=== PATIENT | female | born 1990 | race Caucasian/White ===

== ENCOUNTER 2018-01-09 00:49 | Outpatient (CLI) | payer OTHER, BC, MEDICAID, SELFPAY ==
--- NOTE | 2018-01-09 11:34 | DI.MRI_ITS ---
SYMPTOMS/DIAGNOSIS: SCIATICA RT, M54.31 MRI OF THE LUMBAR SPINE: Comparison is made with plain films dated . T 1, T 2 and STIR sagittal and T 1 and T 2 axial sequences were performed. There is no evidence of fracture. The conus medullaris appears intact. The T 11 - 12 through L 4 - 5 discs have a normal appearance. There is disc desiccation at L 5 - S 1. There is no evidence of disc bulging or focal disc herniation. There are no significant facet joint degenerative changes. IMPRESSION: Partial disc desiccation at L 5 - S 1. No evidence of disc herniation, neural foraminal narrowing or fracture.
== END 2018-01-09 01:09 ==
PROVIDERS: PCP Nurse Practitioner Family; Visit Provider Nurse Practitioner Family
DX: M54.31 Sciatica, right side (principal); M51.36 Other intervertebral disc degeneration, lumbar region
CPT/HCPCS: 72148

== ENCOUNTER 2018-01-26 11:21 | Outpatient (CLI) | payer BC, MEDICAID, SELFPAY ==
[2018-01-26 13:20] LABS: TSH (W/Ref FT4) 1.35 uIU/mL (0.358-3.74)
[2018-01-26 22:52] LABS: Estradiol 43 pg/ml
[2018-01-27 09:39] LABS: FSH 10.3 mIU/ml
[2018-01-28 09:58] LABS: DHEA Sulfate 288 ug/dl (96-512)
[2018-01-28 15:55] LABS: Antimullerian Hormone 6.8 ng/mL (0.9-9.5)
[2018-02-05 16:51] LABS: Testosterone, Free 1.25 ng/dL (0.06-1.06); Testosterone, Total 39 ng/dL (8-60)
== END 2018-01-26 11:41 ==
PROVIDERS: PCP Nurse Practitioner Family; Visit Provider Obstetrics & Gynecology
DX: N91.2 Amenorrhea, unspecified (principal)
CPT/HCPCS: 36415; 82627; 84402; 84403; 82670; 83001; 83520; 84443

== ENCOUNTER 2018-12-11 01:11 | Outpatient (CLI) | payer OTHER, SELFPAY ==
--- NOTE | 2018-12-11 07:36 | DI.US_ITS ---
SYMPTOM/DIAGNOSIS: ANOVULATION, DYSPAEUNIA N94.10 PELVIC ULTRASOUND: Comparison is made with 01 April 2017. Transabdominal and transvaginal exams were performed. The uterus measures 7.3 x 3.4 x 4 cm. The endometrial stripe measures 10 mm in thickness. The ovaries appear normal in size. There are a few small follicles seen on both ovaries. The left ovary was only seen transabdominally due to high position in the pelvis. There is some fluid around the right ovary. No suspicious cysts or mass is seen. There is no evidence of hydronephrosis. IMPRESSION: Small amount of fluid around the right ovary.
== END 2018-12-11 01:31 ==
PROVIDERS: PCP Nurse Practitioner Family; Visit Provider Obstetrics & Gynecology
DX: N94.10 Unspecified dyspareunia (principal); N83.01 Follicular cyst of right ovary; N83.02 Follicular cyst of left ovary; N97.0 Female infertility associated with anovulation
CPT/HCPCS: 76830; 76856

== ENCOUNTER 2019-02-24 18:08 | Outpatient (REF) | payer OTHER, SELFPAY | END 2019-02-24 18:28 | LOC: LBN 18:08 | PROVIDERS: PCP Nurse Practitioner Family; Visit Provider Obstetrics & Gynecology Gynecology | DX: R10.9 Unspecified abdominal pain (principal); Z34.90 Encounter for supervision of normal pregnancy, unspecified, unspecified trimester | CPT/HCPCS: 87086 ==

== ENCOUNTER 2019-04-01 09:49 | Outpatient (CLI) | payer OTHER, SELFPAY ==
[2019-04-01 10:25] LABS: Abs Immature Grans 0.03 k/cumm (0.0-0.09); Absolute Eosinophil Count 0.11 k/cumm (0.0-0.7); Absolute Lymphocyte Count 2.54 k/cumm (1.2-3.4); Absolute Monocyte Count 0.92 k/cumm (0.11-0.7); Basophils % 0.3; Eosinophils % 0.9; HCT 35.4 % (36.0-46.0); HGB 12.1 g/dL (12.0-15.5); Immature Grans % 0.3; Lymphocytes % 21.4; Mean Corp. HGB Concentration 34.2 g/dL (32.0-36.0); Mean Corpuscular Hemoglobin 30.7 pg (27.0-33.0); Mean Corpuscular Volume 89.8 fL (80-95); Mean Platelet Volume 9.8 fL (8.0-11.0); Monocytes % 7.7; Neutrophils % 69.4; Platelet Count 367 x1000/uL (130-400); RBC 3.94 m/cumm (4.00-5.20); RBC Distribution Width 12.9 % (11.7-14.6); White Blood Cell Count 11.89 k/cumm (4.4-10.8)
[2019-04-01 10:26] LABS: Absolute Basophil Count 0.04 k/cumm (0.0-0.2); Absolute Neutrophil Count 8.25 k/cumm (1.2-6.7)
[2019-04-01 11:10] LABS: TSH (W/Ref FT4) 1.04 uIU/mL (0.36-3.74)
[2019-04-02 10:11] LABS: Hepatitis C Ab w Rflx HCV PCR Negative (Negative)
[2019-04-02 10:12] LABS: Hepatitis B Surface Ag Negative (Negative)
[2019-04-02 10:26] LABS: HIV-1/2 Ag & Ab Screen Negative (Negative)
[2019-04-02 11:40] LABS: Varicella IgG Antibody Positive (See Note)
[2019-04-02 13:29] LABS: Rubella IgG Ab (UVM) Positive (See Note)
[2019-04-02 16:40] LABS: Syphilis Total Ab w/Reflex Nonreactive (Nonreactive)
== END 2019-04-01 10:09 ==
PROVIDERS: PCP Nurse Practitioner Family; Visit Provider Advanced Practice Midwife
DX: Z34.91 Encounter for supervision of normal pregnancy, unspecified, first trimester (principal); Z11.4 Encounter for screening for human immunodeficiency virus [HIV]; Z11.59 Encounter for screening for other viral diseases; Z01.84 Encounter for antibody response examination
CPT/HCPCS: 36415; 86787; 86803; 86850; 86900; 86901; 87340; 87389; 84443; 85025; 86762; 86780

== ENCOUNTER 2019-04-01 10:01 | Outpatient (REF) | payer OTHER, SELFPAY ==
--- NOTE | 2019-04-01 09:00 | PAPFT_PTH ---
PATIENT: Arlette Leahy LOC: [facility] U#:[id number] AGE/SX: 28/F ROOM: RE04/01/[address]: Siena Hackett CNM : 1990 BED: DIS: 04/01/2019 SPEC #: [id number] RECD: 04/01/19 13:07 STATUS: BRYON REYoung #: [id number] URBAN: 04/01/19 09:[address]: Siena Hackett DEPT: [facility] [place] Cytology RECD BY: Kandy Silver ENTERED: 04/01/19 13:07 SP TYPE: PAPFT OTHR DR: Yoly Dhaliwal Tissues: 1 - CX/ENDOCX FOR PAP SMEARS Procedures: PAP THIN PREP/UVM Screening Comments: [id number]
[2019-04-01 12:16] LABS: *AMPHETAMINES SCREEN URINE Negative (Negative); *BARBITURATES SCREEN URINE Negative (Negative); *BENZODIAZEPINES SCREEN URINE Negative (Negative); Cannabinoids THC Negative (Negative); Cocaine Screen,Urine Negative (Negative); METHADONE URINE SCREEN Negative (Negative); OPIATES URINE SCREEN Negative (Negative)
[2019-04-01 12:22] LABS: Tricyclic Antidepressants Negative (Negative)
[2019-04-02 13:26] LABS: Chlamydia Result Negative (Negative); GC Result Negative (Negative)
[2019-04-05 10:51] LABS: Buprenorphine Negative; Norbuprenorphine Negative
== END 2019-04-01 10:21 ==
LOC: LBN 10:01
PROVIDERS: PCP Nurse Practitioner Family; Visit Provider Advanced Practice Midwife
DX: Z34.91 Encounter for supervision of normal pregnancy, unspecified, first trimester (principal); Z11.3 Encounter for screening for infections with a predominantly sexual mode of transmission; Z12.4 Encounter for screening for malignant neoplasm of cervix
CPT/HCPCS: 80307; 87491; 87591; 88142; 87086

== ENCOUNTER 2019-04-06 02:00 | Outpatient (CLI) | payer OTHER, SELFPAY ==
[2019-04-06 11:49] LABS: Glucose,1 Hr (Glucola) 134 mg/dL (80-140)
== END 2019-04-06 02:20 ==
PROVIDERS: Advanced Practice Midwife; PCP Nurse Practitioner Family; Visit Provider Advanced Practice Midwife
DX: Z34.91 Encounter for supervision of normal pregnancy, unspecified, first trimester (principal)
CPT/HCPCS: 36415; 82950

== ENCOUNTER 2019-04-29 09:49 | Outpatient (CLI) | payer OTHER, SELFPAY ==
[2019-04-30 16:26] LABS: AFP 22.9 ng/mL; Calculated age at EDD 27 years; Cigarette smoking status non-Smoker; GA used in risk estimate Scan estimate; INHIBIN 187 pg/mL; IVF Pregnancy No; Initial or repeat testing Initial testing; Insulin dependent diabetes No; Maternal Weight 236 lbs; Number of Fetuses 1; Physician Phone Number 802-748-7300; Prev Down(T21)/Trisomy Pregnan No; Prev Pregnancy w/NTD No; RECOMMENDED FOLLOW UP None.; Results Summary Normal risk; hCG, TOTAL 11.2 IU/mL; hCG, TOTAL MoM 0.45 MoM; uE3 1.32 ng/mL; uE3 MoM 1.79 MoM
[2019-05-04 00:11] LABS: Specimen WB Whole Blood
== END 2019-04-29 10:09 ==
PROVIDERS: PCP Nurse Practitioner Family; Visit Provider Advanced Practice Midwife
DX: Z34.91 Encounter for supervision of normal pregnancy, unspecified, first trimester (principal); Z36.89 Encounter for other specified antenatal screening
CPT/HCPCS: 36415; 81329; 81511

== ENCOUNTER 2019-05-11 01:02 | Outpatient (CLI) | payer OTHER, SELFPAY ==
--- NOTE | 2019-05-11 09:57 | DI.US_ITS ---
EXAM: US OB 2-3 TRIMESTER W MOD CLINICAL HISTORY: 18 wk anatomy scan Z34.90 SUPERVISION NORMAL TECHNIQUE: Ultrasound performed using standard protocol. COMPARISON: No exams were available for comparison FINDINGS: The fetus is in cephalic position. The placenta is posterior. The biometric measurements correspon d to 18 weeks 5 days. The outflow tracts were not ideally visualized. No abnormalities are id entified. The amniotic fluid appears visually normal in quantity. IMPRESSION: Limited visualization of the heart. The patient is scheduled to return for additional imaging on .
== END 2019-05-11 01:22 ==
PROVIDERS: PCP Nurse Practitioner Family; Visit Provider Advanced Practice Midwife
DX: Z34.92 Encounter for supervision of normal pregnancy, unspecified, second trimester (principal); Z3A.18 18 weeks gestation of pregnancy
CPT/HCPCS: 76805

== ENCOUNTER 2019-05-14 03:38 | Outpatient (CLI) | payer OTHER, SELFPAY ==
--- NOTE | 2019-05-14 | DI.US_ITS ---
EXAM: US OB F/U FACIAL/LVOT/RVOT CLINICAL HISTORY: F/U OUTFLOW TRACT TECHNIQUE: Ultrasound performed using standard protocol. COMPARISON: US OB 2-3 TRIMESTER W MOD from 05/11/2019 FINDINGS: There is a single intrauterine gestation. The fetus is in the cephalic presentation. heart ra te is 153 beats per minute. Four-chamber heart, left and right ventricular outflow tracts were all v isualized well. The placenta is posterior. Amniotic fluid appears within normal limits.
== END 2019-05-14 03:58 ==
PROVIDERS: PCP Nurse Practitioner Family; Visit Provider Advanced Practice Midwife
DX: Z34.92 Encounter for supervision of normal pregnancy, unspecified, second trimester (principal); Z36.2 Encounter for other antenatal screening follow-up; Z3A.18 18 weeks gestation of pregnancy
CPT/HCPCS: 76815

== ENCOUNTER 2019-07-06 01:33 | Outpatient (CLI) | payer OTHER, SELFPAY ==
[2019-07-06 09:05] LABS: HCT 32.9 % (36.0-46.0); HGB 11.1 g/dL (12.0-15.5); Mean Corp. HGB Concentration 33.7 g/dL (32.0-36.0); Mean Corpuscular Hemoglobin 30.8 pg (27.0-33.0); Mean Corpuscular Volume 91.4 fL (80-95); Mean Platelet Volume 9.6 fL (8.0-11.0); Platelet Count 423 x1000/uL (130-400); RBC Distribution Width 13.3 % (11.7-14.6); White Blood Cell Count 10.85 k/cumm (4.4-10.8)
[2019-07-06 09:13] LABS: Glucose,1 Hr (Glucola) 137 mg/dL (80-140)
== END 2019-07-06 01:53 ==
PROVIDERS: PCP Nurse Practitioner Family; Visit Provider Advanced Practice Midwife
DX: Z34.92 Encounter for supervision of normal pregnancy, unspecified, second trimester (principal)
CPT/HCPCS: 36415; 82950; 85027

== ENCOUNTER 2019-07-14 01:32 | Outpatient (CLI) | payer OTHER, SELFPAY ==
[2019-07-14 08:55] LABS: Glucose 1 Hour 145 mg/dL
[2019-07-14 10:52] LABS: Glucose 3 Hour 104 mg/dL
== END 2019-07-14 01:52 ==
PROVIDERS: PCP Nurse Practitioner Family; Visit Provider Advanced Practice Midwife
DX: Z34.92 Encounter for supervision of normal pregnancy, unspecified, second trimester (principal)
CPT/HCPCS: 36415; 82951

== ENCOUNTER 2019-07-22 13:42 | Outpatient (REF) | payer OTHER, SELFPAY ==
[2019-07-22 14:39] LABS: Bilirubin Negative (Negative); Blood Negative (Negative); Clarity Clear (Clear); Glucose Negative (Negative); Ketones Negative (Negative); Leukocyte Esterase Trace (Negative); Nitrite Negative (Negative); Specific Gravity 1.015 (1.005-1.025); Urobilinogen 0.2 EU/dL (Up TO 0.2)
[2019-07-22 14:40] LABS: Bacteria Rare HPF (Negative); C & S Indicated? C&S Done As Ordered; Casts Negative LPF (Negative); Crystals Negative HPF (Negative); Epithelial Cells Moderate HPF (Negative); Mucus Negative (Negative); Other Cells Negative (Negative); RBC Negative HPF (0-2)
== END 2019-07-22 14:02 ==
LOC: LBN 13:42
PROVIDERS: PCP Nurse Practitioner Family; Visit Provider Advanced Practice Midwife
DX: R30.0 Dysuria (principal)
CPT/HCPCS: 81003; 81015; 87086

== ENCOUNTER 2019-09-10 14:39 | Observation (INO) | payer OTHER, SELFPAY ==
[2019-09-10 15:52] LABS: ROM Plus Negative
== END 2019-09-10 16:30 | disposition home or self-care (01) ==
LOC: OBS 14:50
PROVIDERS: Admitting Provider Advanced Practice Midwife; PCP Nurse Practitioner Family; Visit Provider Advanced Practice Midwife
DX: O60.03 Preterm labor without delivery, third trimester (principal); Z3A.35 35 weeks gestation of pregnancy
CPT/HCPCS: 84112; 59025

== ENCOUNTER 2019-09-17 10:58 | Outpatient (REF) | payer OTHER, SELFPAY ==
[2019-09-17 12:02] LABS: *AMPHETAMINES SCREEN URINE Negative (Negative); *BARBITURATES SCREEN URINE Negative (Negative); *BENZODIAZEPINES SCREEN URINE Negative (Negative); Cannabinoids THC Negative (Negative); Cocaine Screen,Urine Negative (Negative); METHADONE URINE SCREEN Negative (Negative); OPIATES URINE SCREEN Negative (Negative)
[2019-09-17 12:03] LABS: Tricyclic Antidepressants Negative (Negative)
[2019-09-23 13:18] LABS: Buprenorphine Negative; Norbuprenorphine Negative
== END 2019-09-17 11:18 ==
LOC: LBN 10:58
PROVIDERS: PCP Nurse Practitioner Family; Visit Provider Advanced Practice Midwife
DX: Z34.93 Encounter for supervision of normal pregnancy, unspecified, third trimester (principal); Z36.85 Encounter for antenatal screening for Streptococcus B
CPT/HCPCS: 80307; 87081

== ENCOUNTER 2019-09-18 15:55 | Observation (INO) | payer OTHER, SELFPAY | END 2019-09-18 18:45 | disposition home or self-care (01) | PROVIDERS: Admitting Provider Advanced Practice Midwife; PCP Nurse Practitioner Family; Visit Provider Advanced Practice Midwife | DX: O47.03 False labor before 37 completed weeks of gestation, third trimester (principal); Z3A.36 36 weeks gestation of pregnancy ==

== ENCOUNTER 2019-10-02 15:14 | Observation (INO) | payer OTHER, SELFPAY | END 2019-10-02 18:29 | disposition home or self-care (01) | PROVIDERS: Admitting Provider Advanced Practice Midwife; PCP Nurse Practitioner Family; Visit Provider Advanced Practice Midwife | DX: O47.1 False labor at or after 37 completed weeks of gestation (principal); Z3A.38 38 weeks gestation of pregnancy | CPT/HCPCS: 59025; G0378 ==

== ENCOUNTER 2019-10-03 00:57 | Inpatient (IN) | payer OTHER, SELFPAY ==
[2019-10-03 02:32] LABS: HCT 36.4 % (36.0-46.0); HGB 12.5 g/dL (12.0-15.5); Mean Corp. HGB Concentration 34.3 g/dL (32.0-36.0); Mean Corpuscular Hemoglobin 31.1 pg (27.0-33.0); Mean Corpuscular Volume 90.5 fL (80-95); Mean Platelet Volume 9.7 fL (8.0-11.0); Platelet Count 419 x1000/uL (130-400); RBC 4.02 m/cumm (4.00-5.20); RBC Distribution Width 13.4 % (11.7-14.6); White Blood Cell Count 13.35 k/cumm (4.4-10.8)
[2019-10-03] MEDS: Oxytocin 10 UNITS/ML VIAL IM (08:20)
[2019-10-03] MEDS: Methylergonovine 0.2 MG/ML VIAL (08:25)
[2019-10-03] MEDS: Ibuprofen 600 MG TAB PO ×3 (09:25→22:09)
[2019-10-03] MEDS: Acetaminophen 325 MG TAB 650 MG PO ×3 (12:54→22:10)
[2019-10-03 13:44] LABS: COVID-19 RT-PCR UVMMC Result Negative (Negative)
[2019-10-03] MEDS: Ondansetron O.D.T. 4 MG TABEF PO (18:25)
[2019-10-04] MEDS: Acetaminophen 325 MG TAB 650 MG PO ×2 (07:43→13:09)
[2019-10-04] MEDS: Ibuprofen 600 MG TAB PO ×2 (07:44→13:09)
[2019-10-04 07:56] LABS: HCT 33.7 % (36.0-46.0); HGB 11.2 g/dL (12.0-15.5); Mean Corp. HGB Concentration 33.2 g/dL (32.0-36.0); Mean Corpuscular Hemoglobin 30.5 pg (27.0-33.0); Mean Corpuscular Volume 91.8 fL (80-95); Mean Platelet Volume 9.8 fL (8.0-11.0); Platelet Count 379 x1000/uL (130-400); RBC 3.67 m/cumm (4.00-5.20); RBC Distribution Width 13.7 % (11.7-14.6); White Blood Cell Count 13.54 k/cumm (4.4-10.8)
== END 2019-10-04 14:00 | disposition home or self-care (01) | DRG 807 ==
PROVIDERS: Admitting Provider Advanced Practice Midwife; PCP Nurse Practitioner Family; Visit Provider Advanced Practice Midwife
DX: O69.81X0 Labor and delivery complicated by cord around neck, without compression, not applicable or unspecified (principal); Z37.0 Single live birth; O99.214 Obesity complicating childbirth; O99.89 Other specified diseases and conditions complicating pregnancy, childbirth and the puerperium; Z3A.38 38 weeks gestation of pregnancy; Z03.818 Encounter for observation for suspected exposure to other biological agents ruled out; E66.9 Obesity, unspecified; K04.7 Periapical abscess without sinus; Z79.82 Long term (current) use of aspirin; O09.813 Supervision of pregnancy resulting from assisted reproductive technology, third trimester
CPT/HCPCS: 36415; 85027; 86850; 86900; 86901; U0003; J2210; J2590

== ENCOUNTER 2019-10-04 10:14 | Outpatient (CLI) | payer OTHER, SELFPAY | END 2019-10-04 10:34 | PROVIDERS: PCP Nurse Practitioner Family | DX: Z39.1 Encounter for care and examination of lactating mother (principal) | CPT/HCPCS: E0602 ==

== ENCOUNTER 2020-08-08 12:51 | Outpatient (REF) | payer OTHER, SELFPAY ==
--- NOTE | 2020-08-08 09:15 | PAPFT_PTH ---
PATIENT: Arlette Leahy LOC: [facility] U#:[id number] AGE/SX: 29/F ROOM: RE08/08/[address]: MARLENE Block : 1990 BED: DIS: 08/08/2020 SPEC #: [id number] RECD: 08/08/20 12:55 STATUS: BRYON REYoung #: [id number] URBAN: 08/08/20 09:[address]: Patricia Galindo DEPT: [facility] Cytology RECD BY: Kandy Silver ENTERED: 08/08/20 12:55 SP TYPE: PAPFT OTHR DR: Yoly Dhaliwal Tissues: 1 - CX/ENDOCX FOR PAP SMEARS Procedures: PAP THIN PREP/UVM Screening Comments: [id number]
== END 2020-08-08 12:52 | disposition home or self-care (01) ==
LOC: LBN 12:51
PROVIDERS: PCP Nurse Practitioner Family; Visit Provider Nurse Practitioner Family
DX: Z12.4 Encounter for screening for malignant neoplasm of cervix (principal)
CPT/HCPCS: 88142

== ENCOUNTER 2021-04-12 19:17 | Outpatient (REF) | payer OTHER, SELFPAY | END 2021-04-12 19:18 | disposition home or self-care (01) | LOC: LBN 19:17 | PROVIDERS: PCP Nurse Practitioner Family; Visit Provider Nurse Practitioner Family | DX: R30.0 Dysuria (principal) | CPT/HCPCS: 87086 ==

== ENCOUNTER 2021-06-16 16:50 | Emergency (ER) | payer OTHER, SELFPAY ==
[2021-06-16 17:04] VITALS: BP 130/87; PULSE 74; RESP 16; TEMP 37; O2SAT 100
--- NOTE | 2021-06-16 17:41 | ED.GENADUL_ITS ---
Discharge Plan Disposition Patient Disposition: HOME Condition: Stable Discharge Details Clinical Impression: Maxilla pain Primary Care Provider: Yoly Dhaliwal ED Provider: Kandy Schwarz Home Meds and New Rx's Prescriptions: New amoxicillin-pot clavulanate 875-125 mg tablet 1 tab PO BID Qty: 13 0RF Continued metformin 500 mg tablet 500 mg PO BID Qty: 120 3RF prenat.vits,angela,hrf-himc-kjuki Tablet 1 tab PO DAILY Qty: 90 3RF Discharge Instructions Additional Instructions: yogurt with live active cultures twice daily while on antibiotics return with persistent fever, worsening pain, or should you develop any worsening of symptoms recheck with pcp on friday Referrals: Yoly Dhaliwal [Primary Care Provider] - Discharge Data Discharge Date/Time-TO BE ENTERED AT DEPARTURE: 06/16/21 17:48 Medical Decision Making Patient is otherwise healthy Treat empirically for sinusitis versus dental abscess Return precautions discussed and patient expressed understanding, discharged home in stable condition with stable vitals HPI General Date/Time Provider Initiated Documentation: 06/16/21 17:14 . HPI Narrative: This 30-year-old female presents with report of fever, T-max 100.4 at home with left maxillary tenderness. She is having difficulty differentiating if her tooth or sinus infection she reports. She denies prior history of similar symptoms in the past. She took ibuprofen just prior to arrival. She denies chance of . She denies any associated headache or vision change. She states that she had upper respiratory congestion for the past 7 days and 4 days ago started with reported fevers. She denies any stiff neck. She denies any rashes or lesions. She denies any difficulty swallowing. Related Data Home Medications Medication Instructions Recorded Confirmed prenat.vits,angela,yrv-pnbw-wqzbu 1 tab PO DAILY #90 tab 08/08/20 06/16/21 metformin 500 mg tablet 500 mg PO BID #120 tab 04/27/21 06/16/21 amoxicillin 875 mg-potassium 1 tab PO BID #13 tab 06/16/21 clavulanate 125 mg tablet Previous Rx's Medication Instructions Recorded prenat.vits,angela,caj-jnoi-xjrrr 1 tab PO DAILY #90 tab 08/08/20 metformin 500 mg tablet 500 mg PO BID #120 tab 04/27/21 amoxicillin 875 mg-potassium 1 tab PO BID #13 tab 06/16/21 clavulanate 125 mg tablet Allergies Allergy/AdvReac Type Severity Reaction Status Date / Time BANANAS Allergy Severe Rash, Uncoded 06/16/21 17:11 tongue swells General Stated Complaint: RespSymp JULISSA: 4 Review of Systems All systems reviewed & are unremarkable except as noted in HPI and below PFSH All Active Problems (Updated 06/16/21 @ 17:40 by TONYA Groves) Maxilla pain (Acute) Chronic low back pain (Acute) Depression (Chronic) history of suicide ideation and suicidal attempts. 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 She will continue metformin as prescribed. She has had a successful in the past and I am not concerned with tubal patency or male factor infertility. I feel that her difficulties lie in annovulation. Follow up with me in 2 months. Migraines (Chronic) H/O migraine (Acute) Medical History Asthma Fall Obesity Family History Mother Heart disease Maternal Grandfather Lung cancer Social History Smoking/Tobacco Use Status: Former Tobacco Use Smoking risk assessment performed?: Yes Alcohol Intake: never Drug use: Never Household members: family Number of Children: 1 current occupation: Food Worker, [employer] What type of physical activity do you participate in: walking Frequency: 1-2 times per week Do you feel safe at home: Yes Do you feel safe in your relationship?: Yes History History 2 Para 2 Hx # Term Pregnancies 2 Multiple births 0 Hx # Pregnancies 0 Ectopic pregnancies 0 AB induced 0 Hx Number of Living Children 2 AB spontaneous 0 Past Pregnancies Del. Date GA/Weeks # Outcome Route Wgt Sex Labor Lgth Anesthes ia Location [facility] 03/21/12 37 No Successful vaginal 2976.7 g Male 12 local [facility] 10/03/19 38 No Successful vaginal 2976.7 g Female 1.5 Darrick Hackett Delivery Date: 03/21/12 Last Updated by: Radha Hackett went well Delivery Date: 10/03/19 Last Updated by: Jes Mancini RN with intact perineum, loose nuchal cord reduced over head. Increased bleeding after placenta delivery--0.2mg methergine given IM--rubra decreased to minimal flow. Exam Const General: cooperative, comfortable and no acute distress Orientation: alert and oriented x3 HENMT Mouth: oral mucosae normal Other: Left maxillary sinus tenderness Her uvula is midline, there is no evidence of deep space infection, she has no visible evidence of abscess No soft palate induration No trismus Eyes Pupils: PERRL Neck Other: No meningismus Resp Effort & Inspection: normal respiratory effort Cardio Rate: regular rate Rhythm: regular rhythm GI Other: No abdominal tenderness Skin General skin exam: no rashes or lesions noted Neuro General: patient alert and patient oriented x3 Course Vital Signs Vital signs: Vital Signs Temperature 37 C 06/16/21 17:04 Pulse 74 06/16/21 17:04 Respiratory Rate 16 06/16/21 17:04 Blood Pressure 130/87 06/16/21 17:04 Pulse Oximetry 100 06/16/21 17:04 Temperature 37 C 06/16/21 17:04 Temperature Source Tympanic 06/16/21 17:04 Pulse 74 06/16/21 17:04 Respiratory Rate 16 06/16/21 17:04 Respiratory Effort 06/16/21 17:40 Respiratory Depth Normal 06/16/21 17:40 Blood Pressure 130/87 06/16/21 17:04 Blood Pressure Position Sitting 06/16/21 17:04 Pulse Oximetry 100 06/16/21 17:04 Pain Level 7 06/16/21 17:04
[2021-06-16] MEDS: Amoxicillin 875/Clav. 125 TAB PO ×2 (17:42)
== END 2021-06-16 17:48 | disposition home or self-care (01) ==
PROVIDERS: Emergency Provider Physician Assistant; PCP Nurse Practitioner Family
DX: R68.84 Jaw pain (principal)
CPT/HCPCS: 99283; U0003

== ENCOUNTER 2022-06-26 19:51 | Outpatient (REF) | payer OTHER, SELFPAY ==
[2022-06-29 02:15] LABS: COVID-19 RT-PCR UVMMC Result Negative (Negative)
== END 2022-06-26 19:52 | disposition home or self-care (01) ==
LOC: LBN 19:51
PROVIDERS: PCP Nurse Practitioner Family; Visit Provider Physician Assistant Medical
DX: R20.2 Paresthesia of skin (principal); Z20.822 Contact with and (suspected) exposure to COVID-19
CPT/HCPCS: U0003

== ENCOUNTER 2022-11-25 16:23 | Emergency (ER) | payer OTHER, SELFPAY ==
[2022-11-25] VITALS (27 sets, daily range): BP systolic 107–125; BP diastolic 59–84; PULSE 79–111; RESP 11–23; TEMP 36.6; O2SAT 99–100
--- NOTE | 2022-11-25 16:31 | ED.GENADUL_ITS ---
Discharge Plan Disposition Patient Disposition: Home Condition: Improving Discharge Details Clinical Impression: Anaphylaxis, Allergic to bees Primary Care Provider: Yoly Dhaliwal ED Provider: Yesenia Woodruff Home Meds and New Rx's Prescriptions: New prednisone 50 mg tablet 50 mg PO DAILY Qty: 2 0RF epinephrine 0.3 mg/0.3 mL auto-injector 0.3 mg IM ONCE PRN (Reason: anaphylaxis) Qty: 2 0RF Rx Instructions: as a single dose; may repeat once Continued metformin 850 mg tablet 850 mg PO BID Qty: 180 3RF prenat.vits,angela,asa-etig-rkefv Tablet 1 tab PO DAILY Qty: 90 3RF Discharge Instructions Instructions: Prednisone (By mouth), Epinephrine (By injection), General Allergic Reaction (ED) Additional Instructions: You had an allergic reaction to bees today. You received steroids, Benadryl, EpiPen. Or send you home with an EpiPen and you should keep this with you at all times administer if stung by a bee, particular if you develop recurrent symptoms as she did today. You may use the Benadryl as directed on the packaging if you develop any itching or other recurrent symptoms. Please take the steroids as prescribed once a day for the next 3 days. We are sending home with 1 dose which you may take tomorrow morning and then the rest will be able to be picked up from the pharmacy if you develop any significant recurrence of symptoms particularly shortness of breath, nausea please seek care urgently once again. Otherwise, please follow-up with your primary care in 1 week for reevaluation. Referrals: Yoly Dhaliwal [Primary Care Provider] - Discharge Data Discharge Date/Time-TO BE ENTERED AT DEPARTURE: 11/25/22 19:32 Medical Decision Making Patient is pleasant 32 year old female, brought in by , with c/c of allergic reaction after bee sting. Denies SOB, CP, N/V, abdominal pain. Endorses diffuse hives and itching. Has not had rxn to bees in the past, was last stung about 3 wks ago with nothging but local irritation. Was mowing the lawn, stung on the back of left hand about 45min prior to arrival. On exam, she appears slightly anxious. Diffuse hives. No intraoral involvement. No SOB, lungs are clear with no wheezing, good air movement. Rash is diffuse. Given time and that she has rash only at this time, will begin IV, give antihistamines and steroids. Will continue to monitor Initiially, was thinking we may hold off on the epi. Just after evaluation though, she began to not feel well and developed N/V. Epi pen was administered. Will continue with other treatments and close monitoring. Patient appears significantly better. Still has some hives on abdomen, otherwise symptoms have resolved. Plan to send home with epi pen. Will keep for 4 hours to ensure no return of symptoms. Continues to be asymptomatic. Feeling well. will continue to monitor. Will send home with epi pen. Will send home with Prednisone for tomorrow morning. Advised Benadryl for symptoms if needed. Strict return precautions given, they live very close and will return immediately if needed. Advised f/u with PCP. Nursing staff educated on how to use epi pen, she has one to go home with. She is aware that she needs to keep this on her and when to use it. All of her questions and concerns were addressed, she is in agreement with this plan. HPI General Date/Time Provider Initiated Documentation: 11/25/22 16:31 . Limitations to Documentation: no limitations . Information obtained by: patient, family and RN notes reviewed . History of Present Illness 32 year old F presents to the emergency department with the chief complaint of hives after being stung by bee on left hand, described as severe (diffuse hives that have been worsening over 45 min, has not had this previously), and is localized to the chest, back, abdomen, left, right, upper extremity and lower extremity. Patient started experiencing this minute(s) (45) and it has been constant (worsening). No relieving factors improve symptom(s), Other factors that worsen symptoms (began after being stung by bee) . Patient notes no other symptoms. and nausea/vomiting; denies chest pain, cough, fever/chills, headaches, shortness of breath and syncope. Patient did receive the following treatments prior to arrival, none Related Data Home Medications Medication Instructions Recorded Confirmed metformin 850 mg tablet 850 mg PO BID #180 tabs 12/04/21 11/25/22 prenat.vits,angela,nbc-iwvx-swgwo 1 tab PO DAILY #90 tabs 09/04/22 11/25/22 epinephrine 0.3 mg/0.3 mL 0.3 mg (0.3 mL) IM ONCE PRN 11/25/22 injection, auto-injector anaphylaxis #2 ea prednisone 50 mg tablet 50 mg PO DAILY #2 tabs 11/25/22 Previous Rx's Medication Instructions Recorded metformin 850 mg tablet 850 mg PO BID #180 tabs 12/04/21 prenat.vits,angela,cbk-qonr-wjrnp 1 tab PO DAILY #90 tabs 09/04/22 epinephrine 0.3 mg/0.3 mL 0.3 mg (0.3 mL) IM ONCE PRN 11/25/22 injection, auto-injector anaphylaxis #2 ea prednisone 50 mg tablet 50 mg PO DAILY #2 tabs 11/25/22 Allergies Allergy/AdvReac Type Severity Reaction Status Date / Time bee venom protein (honey bee) Allergy Severe Anaphylaxis Unverified 11/25/22 19:22 BANANAS Allergy Severe Rash, Uncoded 11/25/22 17:04 tongue swells General JULISSA: 4 Review of Systems Constitutional Constitutional: Reports as per HPI, Denies fever(s) and Denies headache(s) Eyes Eyes: Reports as per HPI ENT Ears, Nose, Mouth, and Throat: Reports as per HPI and Denies headache(s) Cardiovascular Cardiovascular: Denies chest pain Respiratory Respiratory: Reports as per HPI Gastrointestinal Gastrointestinal: Reports as per HPI Integumentary/Breasts Skin/Breast: Reports as per HPI Neurologic Neurologic: Denies headache(s) PFSH All Active Problems (Updated 11/25/22 @ 19:20 by TONYA Babin) 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 She will continue metformin as prescribed. She has had a successful in the past and I am not concerned with tubal patency or male factor infertility. I feel that her difficulties lie in annovulation. Follow up with me in 2 months. Depression (Chronic) history of suicide ideation and suicidal attempts. 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 Anaphylaxis (Acute) Allergic to bees (Acute) Medical History (Updated 11/25/22 @ 19:20 by TONYA Babin) Asthma Chronic low back pain GERD (gastroesophageal reflux disease) H/O migraine Obesity Family History Mother Heart disease Maternal Grandfather Lung cancer Social History Smoking/Tobacco Use Status: Former Tobacco Use Smoking risk assessment performed?: Yes Alcohol Intake: never Drug use: Never Substance use type: does not use Household members: family Number of Children: 1 current occupation: Food Worker, [employer] What type of physical activity do you participate in: walking Frequency: 1-2 times per week Do you feel safe at home: Yes Do you feel safe in your relationship?: Yes History History 2 Para 2 Hx # Term Pregnancies 2 Multiple births 0 Hx # Pregnancies 0 Ectopic pregnancies 0 AB induced 0 Hx Number of Living Children 2 AB spontaneous 0 Past Pregnancies Del. Date GA/Weeks # Preg Succ Route Wgt Sex Labor Lgth Anesth esia Location [facility] 03/21/12 37 No vaginal 2976.7 g Male 12 local [facility] 10/03/19 38 No vaginal 2976.7 g Female 1.5 J. Aden plan Delivery Date: 03/21/12 Last Updated by: Radha Hackett went well Delivery Date: 10/03/19 Last Updated by: Jes Mancini RN with intact perineum, loose nuchal cord reduced over head. Increased bleeding after placenta delivery--0.2mg methergine given IM--rubra decreased to minimal flow. Exam Const General: cooperative, well developed, in distress mild (diffuse hives, itching frequently) and anxious Nutritional Appearance: well nourished and overweight Orientation: alert, awake and oriented x3 HENMT Head: normal to inspection Ears: hearing grossly normal bilaterally Face and sinus: normal facial exam Mouth: oral mucosae normal, lip normal, tongue normal, oropharynx normal, moist mucous membranes, no drooling and no muffled voice Teeth and gingiva: dentition normal Throat: posterior oropharynx normal Eyes General: appearance normal, both eyes and all related structures Neck Neck: normal visual inspection, full ROM, no lymphadenopathy, no meningeal signs and trachea midline Resp Effort & Inspection: normal respiratory effort, able to speak in complete sentences, no respiratory distress and no use of accessory muscles Auscultation: clear to auscultation bilaterally Cardio Rate: regular rate Rhythm: regular rhythm Heart Sounds: S1 normal and S2 normal GI Inspection: other (hives) Palpation: soft, not rigid and nontender Skin Rashes: other (diffuse hives on BUE, BLE, abdomen with areas of excoriation) Neuro General: patient alert and patient awake Cognition: normal cognition Speech: speech normal Gait: normal gait Psych Appearance: grossly normal and well kempt Mental Status: mental status grossly normal Speech and Movement: speech and movement normal
[2022-11-25] MEDS: EPINEPHrine 0.3 MG KIT (16:41)
[2022-11-25] MEDS: methylPREDNISolone SUCC 125 MG VIAL IVP (16:41)
[2022-11-25] MEDS: Loratidine 10 MG TAB PO (16:41)
[2022-11-25] MEDS: diphenhydrAMINE 50 MG/ML VIAL IVP (16:41)
[2022-11-25] MEDS: Normal Saline 1,000 ML 1000 ML IV (16:41)
[2022-11-25] MEDS: Ondansetron 4 MG/2 ML VIAL IVP (16:41)
[2022-11-25 17:12] LABS: Abs Immature Grans 0.04 10^3/uL (0.0-0.06); Absolute Basophil Count 0.04 10^3/uL (0.0-0.2); Absolute Monocyte Count 0.83 10^3/uL (0.1-0.8); Absolute Neutrophil Count 7.18 10^3/uL (1.2-6.7); Basophils % 0.3; Eosinophils % 0.7; HCT 43.1 % (36.0-46.0); HGB 14.9 g/dL (11.2-15.7); Immature Grans % 0.3; Lymphocytes % 32.9; MCH 30.6 pg (27.0-33.0); MCHC 34.6 % (32.0-36.0); MCV 89 fL (80-95); MPV 10.2 fL (8.0-11.0); Monocytes % 6.8; Platelet Count 440 10^3/uL (130-400); RBC 4.87 10^6/uL (3.93-5.22); RDW 12.3 % (11.7-14.6); RDW-SD 40.2 fL; WBC 12.17 10^3/uL (4.4-10.8)
[2022-11-25 17:25] LABS: Absolute Eosinophil Count 0.09 10^3/uL (0.0-0.7)
[2022-11-25 17:41] LABS: ALT 19 U/L (14-59); AST 13 U/L (15-37); Albumin 4.6 g/dL (3.4-5.0); Alkaline Phosphatase 87 U/L (46-116); Anion Gap 14.8 mmol/L (3-11); BUN 8 mg/dL (7-18); Bilirubin, Total 0.4 mg/dL (0.2-1.0); CO2 23.2 mmol/L (21.0-32.0); CREATININE 0.9 mg/dL (0.55-1.02); Calcium 9.9 mg/dL (8.5-10.1); Chloride 102 mmol/L (98-107); Glucose 100 mg/dL (74-106); HCG Qual (Serum) Negative; Potassium 3.3 mmol/L (3.5-5.1); Sodium 140 mmol/L (136-145); Total Protein 8.4 g/dL (6.4-8.2)
[2022-11-25] MEDS: predniSONE 20 MG TAB 60 MG PO (19:25)
[2022-11-25] MEDS: EPINEPHrine 0.3 MG KIT IM (19:25)
[2022-11-25] MEDS: EPINEPHrine 1 MG/ML AMP pres-free 0.3 MG SC (19:25)
== END 2022-11-25 19:32 | disposition home or self-care (01) ==
PROVIDERS: Emergency Provider Physician Assistant; PCP Nurse Practitioner Family
DX: T78.2XXA Anaphylactic shock, unspecified, initial encounter (principal); Z91.030 Bee allergy status; T63.411A Toxic effect of venom of centipedes and venomous millipedes, accidental (unintentional), initial encounter
CPT/HCPCS: 80053; 96361; 96372; 96374; 96375; 99284; 84703; 85025; J0171; J1200; J2405; J2930; J7512

== ENCOUNTER 2023-09-19 10:05 | Emergency (ER) | payer OTHER, SELFPAY ==
[2023-09-19 10:10] VITALS: BP 138/89; PULSE 76; RESP 14; TEMP 36.8; O2SAT 100
--- NOTE | 2023-09-19 10:15 | DI.US_ITS ---
Exam(s) US TRANSVAGINAL EXAM: US TRANSVAGINAL CLINICAL HISTORY: on clomid, ?ovarian hyperstimulation. TECHNIQUE: Ultrasound of the pelvis, transvaginal was performed using standard protocol. COMPARISON: No exams were available for comparison FINDINGS: UTERUS: Position: Anteverted. Size: 8.2 x 4.2 by 5.0 cm Endometrium: 11 mm. Myometrium: Unremarkable. Cervix: Unremarkable. OVARIES: Right: 3.6 x 2.7 x 3.3 cm Cyst or mass: Largest follicle 2.3 cm maximal dimension. A few other tiny follicles are seen. Left: 3.8 x 2.6 x 3 cm Cyst or mass: Largest follicle 2.9 centimeter maximum dimension. A few other tiny follicles are note d . DOPPLER: Color: Symmetric and uniform flow to both ovaries. No hyperemia. Duplex: Normal ovarian arterial waveforms visualized. CUL-DE-SAC: Free fluid: None. IMPRESSION: 1. Normal-appearing uterus with endometrial stripe within normal limits. 2. follicles on both ovaries. DATA REPOSITORY:
--- NOTE | 2023-09-19 10:37 | W.ED.GENAD ---
Discharge Plan Disposition Patient Disposition: Home Condition: Stable Discharge Details Clinical Impression: Dizziness, Nausea & vomiting Primary Care Provider: GILBERT NOLASCO ED Provider: Francisco Golden Home Meds and New Rx's Prescriptions: New ondansetron 4 mg tablet,disintegrating 4 mg PO Q8H PRN (Reason: nausea and vomiting) Qty: 30 0RF meclizine 25 mg tablet 25 mg PO BID PRN (Reason: dizziness) Qty: 30 0RF Continued metformin 850 mg tablet 850 mg PO BID Qty: 180 3RF prenat.vits,angela,efd-irwa-qjkpq Tablet 1 tab PO DAILY Qty: 90 3RF epinephrine 0.3 mg/0.3 mL auto-injector 0.3 mg IM ONCE PRN (Reason: anaphylaxis) Qty: 2 0RF Rx Instructions: as a single dose; may repeat once Discharge Instructions Additional Instructions: Your labs and ultrasound are reassuring against ovarian hyperstimulation syndrome Follow-up with [facility] If you feel more ill, have severe abdominal pain or persistent vomiting despite the Zofran return to the emergency department for reevaluation HPI General Mode of arrival: ambulatory. Date/Time Provider Initiated Documentation: 09/19/23 10:11. Limitations to Documentation: no limitations. Information obtained by: patient. History of Present Illness 32 year old F presents to the emergency department with the chief complaint of n/v, lightheaded, described as moderate, Patient started experiencing this hour(s) (6) and it has been intermittent. No relieving factors improve symptom(s), No exacerbating factors reported . Patient notes denies chest pain and shortness of breath. Patient did receive the following treatments prior to arrival, none Related Data Home Medications Medication Instructions Recorded Confirmed epinephrine 0.3 mg/0.3 mL 0.3 mg (0.3 mL) IM ONCE PRN 11/25/22 09/19/23 injection, auto-injector anaphylaxis #2 ea metformin 850 mg tablet 850 mg PO BID #180 tabs 01/17/23 09/19/23 prenat.vits,angela,qwv-ixzq-djidh 1 tab PO DAILY #90 tabs 09/02/23 09/19/23 meclizine 25 mg tablet 25 mg PO BID PRN dizziness #30 tabs 09/19/23 ondansetron 4 mg disintegrating 4 mg PO Q8H PRN nausea and 09/19/23 tablet vomiting #30 tabs Previous Rx's Medication Instructions Recorded epinephrine 0.3 mg/0.3 mL 0.3 mg (0.3 mL) IM ONCE PRN 11/25/22 injection, auto-injector anaphylaxis #2 ea metformin 850 mg tablet 850 mg PO BID #180 tabs 01/17/23 prenat.vits,angela,ncg-ymbd-fmtri 1 tab PO DAILY #90 tabs 09/02/23 meclizine 25 mg tablet 25 mg PO BID PRN dizziness #30 tabs 09/19/23 ondansetron 4 mg disintegrating 4 mg PO Q8H PRN nausea and 09/19/23 tablet vomiting #30 tabs Allergies Allergy/AdvReac Type Severity Reaction Status Date / Time bee venom protein (honey bee) Allergy Severe Anaphylaxis Unverified 09/19/23 10:15 BANANAS Allergy Severe Rash, Uncoded 09/19/23 10:15 tongue swells General Stated Complaint: Dizzy/Sync JULISSA: 3 Review of Systems All systems reviewed & are unremarkable except as noted in HPI and below Constitutional Constitutional: Denies chills, Denies fever(s) and Denies weakness Cardiovascular Cardiovascular: Denies chest pain and Denies dyspnea Respiratory Respiratory: Denies cough and Denies dyspnea Gastrointestinal Gastrointestinal: Denies abdominal pain, Reports nausea and Reports vomiting Musculoskeletal Musculoskeletal: Denies joint swelling Neurologic Neurologic: Denies weakness Exam Const General: no acute distress Orientation: alert [facility] Head: normal to inspection Ears: external ears normal General nose exam: external nose normal Mouth: moist mucous membranes Eyes General: appearance normal, both eyes and all related structures Neck Neck: normal visual inspection Resp Effort & Inspection: normal respiratory effort and able to speak in complete sentences Cardio Rate: regular rate GI Palpation: soft and nontender Skin General skin exam: no rashes or lesions noted Neuro General: patient alert and patient oriented x3 Extrem General: normal to inspection Psych Mental Status: mental status grossly normal Course Vital Signs Vital signs: Vital Signs Temperature 36.8 C 09/19/23 10:10 Pulse 76 09/19/23 10:10 Respiratory Rate 14 09/19/23 10:10 Blood Pressure 138/89 09/19/23 10:10 Pulse Oximetry 100 09/19/23 10:10 Temperature 36.8 C 09/19/23 10:10 Pulse 76 09/19/23 10:10 Respiratory Rate 14 09/19/23 10:10 Blood Pressure 138/89 09/19/23 10:10 Blood Pressure Position Sitting 09/19/23 10:10 Pulse Oximetry 100 09/19/23 10:10 Oxygen Delivery Method Room Air 09/19/23 10:10 Oxygen Flow Rate 0 09/19/23 10:10 Pain Level 0 09/19/23 10:10 Medical Decision Making 32-year-old female comes in with feeling lightheaded and having nausea vomiting since this morning. She called [facility] as she is beginning Clomid to induce fertility was sent here to evaluate for possibly ovarian hyperstimulation syndrome. She denies any fevers, chills, chest pain. She has no abdominal pain. She is alert and oriented x 4 on arrival and appears well. She has a soft nontender abdomen. Suspect this could be medication induced side effects but will check CBC, CMP, hCG and obtain ultrasound to evaluate for ovarian hyperstimulation syndrome. She also notes some dizziness, will trial meclizine, no deficits on neuro exam to suggest central vertigo Labs and imaging unremarkable, patient is stable vital signs still has no abdominal tenderness. She is stable for discharge, advised to follow-up with her [facility] and return precautions given Differential Diagnosis Differential Diagnosis: Medication reaction, ovarian hyperstimulation syndrome Imaging Data Radiologic Study: Attestation: I personally reviewed and interpreted this imaging study as follows: Imaging: Ultrasound Radiologist's impression: Patient Name: Arlette Leahy Unit #: [id number] Loc: ER Ordering Provider: Francisco Golden M.D. Status: [facility] ER Primary Care Provider: GILBERT NOLASCO NP Date of Exam: 09/19/23 Sex: F Admission Date: 09/19/23 : 1990 Age: 32 Exam(s) US TRANSVAGINAL EXAM: US TRANSVAGINAL CLINICAL HISTORY: on clomid, ?ovarian hyperstimulation. TECHNIQUE: Ultrasound of the pelvis, transvaginal was performed using standard protocol. COMPARISON: No exams were available for comparison FINDINGS: UTERUS: Position: Anteverted. Size: 8.2 x 4.2 by 5.0 cm Endometrium: 11 mm. Myometrium: Unremarkable. Cervix: Unremarkable. OVARIES: Right: 3.6 x 2.7 x 3.3 cm Cyst or mass: Largest follicle 2.3 cm maximal dimension. A few other tiny follicles are seen. Left: 3.8 x 2.6 x 3 cm Cyst or mass: Largest follicle 2.9 centimeter maximum dimension. A few other tiny follicles are noted . DOPPLER: Color: Symmetric and uniform flow to both ovaries. No hyperemia. Duplex: Normal ovarian arterial waveforms visualized. CUL-DE-SAC: Free fluid: None. IMPRESSION: 1. Normal-appearing uterus with endometrial stripe within normal limits. 2. follicles on both ovaries. Lab Data Lab results reviewed: Yes I reviewed the patient's lab results. Quality:[facility] Health Related Social Needs: No Data to Display PFSH All Active Problems (Updated 09/19/23 @ 11:41 by Francisco Golden MD) Nausea & vomiting (Acute) Dizziness (Acute) Subfertility, female (Acute) Depression (Chronic) history of suicide ideation and suicidal attempts. 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 PCOD (polycystic ovarian disease) (Acute) Will start Clomid 50 mg PO on CDs 5-9. She will continue metformin as prescribed. She has had a successful in the past and I am not concerned with tubal patency or male factor infertility. I feel that her difficulties lie in annovulation. Follow up with me in 2 months. 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) Medical History Asthma Chronic low back pain Obesity GERD (gastroesophageal reflux disease) H/O migraine Family History Mother Heart disease Maternal Grandfather Lung cancer Social History Smoking/Tobacco Use Status: Former Tobacco Use Smoking risk assessment performed?: Yes Alcohol Intake: never Drug use: Never Substance use type: does not use Household members: family Number of Children: 1 current occupation: Food Worker, [employer] What type of physical activity do you participate in: walking Frequency: 1-2 times per week Do you feel safe at home: Yes Do you feel safe in your relationship?: Yes History History 2 Para 2 Hx # Term Pregnancies 2 Multiple births 0 Hx # Pregnancies 0 Ectopic pregnancies 0 AB induced 0 Hx Number of Living Children 2 AB spontaneous 0 Past Pregnancies Del. Date GA/Weeks # Preg Succ Route Wgt Sex Labor Lgth Anesthesia Location Prov Complic 03/21/12 37 No vaginal 2976.7 g Male 12 local [facility] 10/03/19 38 No vaginal 2976.7 g Female 1.5 [facility] Delivery Date: 03/21/12 Last Updated by: Radha Hackett went well Delivery Date: 10/03/19 Last Updated by: Jes Mancini RN with intact perineum, loose nuchal cord reduced over head. Increased bleeding after placenta delivery--0.2mg methergine given IM--rubra decreased to minimal flow.
[2023-09-19] MEDS: Ondansetron 4 MG/2 ML VIAL IVP (10:45)
[2023-09-19 10:59] LABS: Abs Immature Grans 0.01 10^3/uL (0.0-0.06); Absolute Basophil Count 0.06 10^3/uL (0.0-0.2); Absolute Eosinophil Count 0.08 10^3/uL (0.0-0.7); Absolute Monocyte Count 0.46 10^3/uL (0.1-0.8); Absolute Neutrophil Count 5.63 10^3/uL (1.2-6.7); Basophils % 0.7 %; HCT 42.4 % (36.0-46.0); HGB 14.1 g/dL (11.2-15.7); Immature Grans % 0.1 %; Lymphocytes % 22.4 %; MCH 30.9 pg (27.0-33.0); MCHC 33.3 % (32.0-36.0); MCV 93 fL (80-95); Monocytes % 5.7 %; Neutrophils % 70.1 %; Platelet Count 322 10^3/uL (130-400); RBC 4.56 10^6/uL (3.93-5.22); RDW 12.1 % (11.7-14.6); RDW-SD 41.7 fL; WBC 8.04 10^3/uL (4.4-10.8)
[2023-09-19] MEDS: Normal Saline 1,000 ML 1000 ML IV (11:00)
[2023-09-19 11:20] LABS: ALT 21 U/L (14-59); AST 11 U/L (15-37); Albumin 3.9 g/dL (3.4-5.0); Alkaline Phosphatase 66 U/L (46-116); Anion Gap 6.9 mmol/L (3-11); BUN 9 mg/dL (7-18); Bilirubin, Total 0.32 mg/dL (0.2-1.0); CO2 28.1 mmol/L (21.0-32.0); CREATININE 0.8 mg/dL (0.55-1.02); Calcium 9.2 mg/dL (8.5-10.1); Chloride 107 mmol/L (98-107); Estimated GFR 101.59 (mL/min/1.73m2); Glucose 91 mg/dL (74-106); Lipase 36 U/L (16-77); Potassium 4.1 mmol/L (3.5-5.1); Sodium 142 mmol/L (136-145); Total Protein 7.4 g/dL (6.4-8.2)
[2023-09-19] MEDS: Meclizine 25 MG TAB PO (11:20)
[2023-09-19 11:21] LABS: Bilirubin Negative (Negative); Blood Negative (Negative); Clarity Clear (Clear); Glucose Negative (Negative); Ketones Trace mg/dL (Negative); Leukocyte Esterase Negative (Negative); Nitrite Negative (Negative); Urobilinogen 0.2 mg/dL (Up to 0.2)
[2023-09-19 11:37] VITALS: BP 116/75; PULSE 68; TEMP 36.8; O2SAT 98
== END 2023-09-19 11:50 | disposition home or self-care (01) ==
PROVIDERS: Emergency Provider Emergency Medicine; PCP Nurse Practitioner Family
DX: R42 Dizziness and giddiness (principal); R11.2 Nausea with vomiting, unspecified
CPT/HCPCS: 80053; 81025; 83690; 96361; 96374; 99284; 76830; 81003; 83735; 85025; 99283; J2405

== ENCOUNTER 2024-03-04 12:11 | Outpatient (CLI) | payer OTHER, SELFPAY ==
[2024-03-04 12:37] LABS: HCG Quant, Pregnancy < 1 mIU/mL (1-3)
== END 2024-03-04 12:12 | disposition home or self-care (01) ==
LOC: LBO 12:12
PROVIDERS: PCP Nurse Practitioner Family; Visit Provider Obstetrics & Gynecology
DX: Z32.01 Encounter for pregnancy test, result positive (principal)
CPT/HCPCS: 36415; 84702

== ENCOUNTER 2024-04-08 04:57 | Outpatient (CLI) | payer OTHER, SELFPAY ==
[2024-04-08 10:18] LABS: TSH (W/Ref FT4) 2.26 uIU/mL (0.36-3.74)
== END 2024-04-08 04:58 | disposition home or self-care (01) ==
PROVIDERS: PCP Nurse Practitioner Family; Referring Provider Nurse Practitioner Family; Visit Provider Nurse Practitioner Family
DX: F32.9 Major depressive disorder, single episode, unspecified (principal); R53.83 Other fatigue
CPT/HCPCS: 36415; 84443

== ENCOUNTER 2024-07-01 09:14 | Outpatient (CLI) | payer OTHER, SELFPAY ==
[2024-07-01 10:28] LABS: TSH (W/Ref FT4) 2.73 uIU/mL (0.36-3.74)
[2024-07-01 19:03] LABS: Prolactin 4.4 ng/mL (See Note)
== END 2024-07-01 09:15 | disposition home or self-care (01) ==
LOC: LBO 09:14
PROVIDERS: PCP Nurse Practitioner Family; Visit Provider Obstetrics & Gynecology
DX: E28.2 Polycystic ovarian syndrome (principal)
CPT/HCPCS: 36415; 84146; 84443

== ENCOUNTER 2024-10-05 09:04 | Outpatient (CLI) | payer OTHER, SELFPAY ==
--- NOTE | 2024-10-05 08:45 | DI.RAD_ITS ---
Exam(s) XR ANKLE LT COMPLETE EXAM: XR ANKLE LT COMPLETE CLINICAL HISTORY: M76.62 Achilles tendinitis, left leg , rule out OA. TECHNIQUE: 2D digital imaging was performed. COMPARISON: No exams were available for comparison FINDINGS: 3 views No evidence of fracture or widening the ankle mortise. There is some soft tissue swelling noted laterally but no fracture. Talar dome appears unremarkable. No osseous lesions nor degenerative changes in the ankle and subtalar joints. No osteochondral defects. Bone density normal. No evidence of osseous tarsal coalition. IMPRESSION: Soft tissue swelling laterally but no acute osseous findings in the ankle. DATA REPOSITORY: RADIATION DOSE DELIVERED:
== END 2024-10-05 09:24 ==
LOC: DI 09:04
PROVIDERS: PCP Nurse Practitioner Family; Visit Provider Nurse Practitioner Family
DX: M76.62 Achilles tendinitis, left leg (principal)
CPT/HCPCS: 73610

== ENCOUNTER 2024-10-14 01:29 | Outpatient (CLI) | payer OTHER, SELFPAY ==
[2024-10-14 07:23] LABS: Glucose 92 mg/dL (74-106)
[2024-10-14 07:55] LABS: Calculated LDL 86 mg/dL (<100); Cholesterol 155 mg/dL (<200); HDL Cholesterol 49 mg/dL (>or=50); TSH (W/Ref FT4) 1.95 uIU/mL (0.36-3.74); Triglyceride 103 mg/dL (<150)
== END 2024-10-14 01:30 | disposition home or self-care (01) ==
LOC: LBO 01:29
PROVIDERS: Absent Provider Nurse Practitioner Family; PCP Nurse Practitioner Family; Referring Provider Nurse Practitioner Family; Visit Provider Nurse Practitioner Family
DX: Z00.00 Encounter for general adult medical examination without abnormal findings (principal); N97.9 Female infertility, unspecified; E66.9 Obesity, unspecified
CPT/HCPCS: 36415; 80061; 82947; 84443

== ENCOUNTER 2025-01-17 08:44 | Outpatient (REF) | payer OTHER, SELFPAY ==
--- NOTE | 2025-01-17 08:30 | PAPFT_PTH ---
PATIENT: Arlette Leahy LOC: [facility] U#:[id number] AGE/SX: 34/F ROOM: RE01/17/[address]: Kala Sellers DO : 1990 BED: DIS: 01/17/2025 SPEC #: [id number] RECD: 01/17/25 12:46 STATUS: SOUAsiya REYoung #: [id number] URBAN: 01/17/25 08:[address]: Kala Sellers DEPT: [facility] Cytology RECD BY: Kandy Silver ENTERED: 01/17/25 12:46 SP TYPE: PAPFT OTHR DR: Charity Grant APRN Tissues: 1 - CX/ENDOCX FOR PAP SMEARS Procedures: PAP THIN PREP/[facility] Screening HPV DNA PROBE Comments: [id number] (HPV 16 & 18/45)
== END 2025-01-17 08:45 | disposition home or self-care (01) ==
LOC: LBN 08:44
PROVIDERS: PCP Nurse Practitioner Family; Visit Provider Obstetrics & Gynecology
DX: Z12.4 Encounter for screening for malignant neoplasm of cervix (principal)
CPT/HCPCS: 88142; 87624